=== PATIENT | male | born 1985 | race Caucasian/White ===

== ENCOUNTER 2020-01-23 15:54 | Emergency (ER) | payer SELFPAY ==
[2020-01-23] MEDS ORDERED: KETOROLAC 30 MG/ML INJ ONE (16:23)
[2020-01-23] MEDS ORDERED: NA CHLORIDE 0.9% 1,000 ML ONE (16:23)
[2020-01-23] MEDS ORDERED: ONDANSETRON 4 MG/2 ML VIAL ONE (16:23)
[2020-01-23 16:32] LABS: Absolute Lymphocytes (CBC) 1.9 K/uL (0.7-4.9); Basophils % 0.6 % (0-1.3); Hematocrit 40.2 % (39.6-49.0); Lymphocytes % 33.4 % (15.3-44.8); MPV 8.9 fL (7.6-11.3); RBC Red Blood Cell Count 4.63 M/uL (4.33-5.43)
--- NOTE | 2020-01-23 16:47 | RAD REPORT ---
EXAM DESCRIPTION: CT - Stone Protocol - 01/23/2020 4:30 pm CLINICAL HISTORY: Abdominal pain. Left flank pain COMPARISON: None. TECHNIQUE: Computed axial tomography of the abdomen pelvis was obtained without oral or IV contrast. Lack of IV and oral contrast limits evaluation of solid organs, bowel, and vessels. Coronal reformat giovana images were obtained and reviewed. All CT scans are performed using dose optimization technique as appropriate and may include automated exposure control or mA/KV adjustment according to patient size. FINDINGS: A 2 millimeter calculus right kidney no hydronephrosis. 2 millimeter calculus left kidney no hydronephrosis. A ureteral calculus is not seen. A 1 millimeter calculus is present within the pos terior right bladder. The liver, spleen, pancreas and adrenals appear grossly normal There is no evidence of diverticulitis. Small umbilical hernia IMPRESSION: Small nonobstructing bilateral renal calculi 2 millimeter calculus within the posterior right bladder probably has recently passed from the right ureter
[2020-01-23 16:55] LABS: ALT/SGPT 80 U/L (12-78); Albumin 3.9 g/dL (3.4-5.0); Alkaline Phosphatase 171 U/L (45-117); BUN Blood Urea Nitrogen 10 mg/dL (7-18); Bicarbonate 28 mmol/L (21-32); Bilirubin Direct < 0.1 mg/dL (0-0.2); Bilirubin Total 0.3 mg/dL (0.2-1.0); Glucose Level 90 mg/dL (74-106); Lipase 61 U/L (73-393); Protein, Total 8.3 g/dL (6.4-8.2); Sodium Level 145 mmol/L (136-145)
[2020-01-23 16:58] LABS: Urine Blood 2+ (NEG); Urine Glucose NEGATIVE (NEG); Urine Protein NEGATIVE (NEG); Urine Specific Gravity 1.025 (1.005-1.030); Urine pH 6.5 (5.0-7.0)
[2020-01-23 17:27] LABS: AST/SGOT 38 U/L (15-37); Potassium 3.8 mmol/L (3.5-5.1)
--- NOTE | 2020-01-23 17:32 | ER ---
Nurse's Notes 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 Started after ll1 urinating today. Coronavirus screen: Client denies travel out of the [place] in the last 14 days. At this time, the client does not indicate any symptoms associated with coronavirus-19. Ebola Screen: Patient denies travel to an Ebola-affected area in the 21 days before illness onset. Initial Sepsis Screen: Does the patient meet any 2 criteria? No. Patient's initial sepsis screen is negative. Risk Assessment: Do you want to hurt yourself or someone else? Patient reports no desire to harm self or others. Onset of symptoms was January 23, 2020. 16:01 Method Of Arrival: Ambulatory ll1 16:01 Acuity: YSABEL 3 ll1 Historical: - Allergies: 16:02 No Known Allergies; ll1 - PSHx: 16:02 femur fx; ll1 - Social history:: Smoking status: Patient denies any tobacco usage or history of. Patient/guardian denies using alcohol, street drugs. Screenin:10 Abuse screen: Denies threats or abuse. Denies injuries from another. Nutritional jr10 screening: No deficits noted. Tuberculosis screening: No symptoms or risk factors identified. Fall Risk IV access (20 points). Assessment: 16:05 General: Appears uncomfortable, Behavior is appropriate for age. Pain: Complains of jr10 pain in left flank Pain radiates to left upper quadrant and left lower quadrant Pain currently is 10 out of 10 on a pain scale. Pain began 30 min ago. Neuro: No deficits noted. Cardiovascular: No deficits noted. Respiratory: Airway is patent Respiratory effort is even, unlabored, Respiratory pattern is regular, symmetrical, Breath sounds are clear bilaterally. GI: Abdomen is non-distended, Bowel sounds present X 4 quads. Patient currently denies nausea, vomiting. : Reports urgency. EENT: No deficits noted. No signs and/or symptoms were reported regarding the EENT system. Derm: No deficits noted. No signs and/or symptoms reported regarding the dermatologic system. Musculoskeletal: No deficits noted. No signs and/or symptoms reported regarding the musculoskeletal system. Vital Signs: 16:01 BP 157 / 110; Pulse 70; Resp 20; Temp 98.0; Pulse Ox 100% ; Pain 10/10; ll1 17:21 BP 124 / 79; Pulse 70; Resp 18; Pulse Ox 100% ; jr10 ED Course: 15:55 Patient arrived in ED. ag5 16:01 Triage completed. ll1 16:02 Arm band placed on. ll1 16:03 Chelly Camara, JOSÉ MIGUEL is Primary Nurse. jr10 16:05 Vinh Rascon PA is PHCP. cp 16:05 Vinh Tariq MD is Attending Physician. cp 16:10 No provider procedures requiring assistance completed. Inserted saline lock: 20 gauge jr10 in right forearm, using aseptic technique. IV is patent, is intact, with good blood return, Flushed. 16:11 Patient has correct armband on for positive identification. Bed in low position. Call jr10 light in reach. Side rails up X2. Pulse ox on. NIBP on. 16:30 CT Stone Protocol In Process Unspecified. EDMS 17:42 IV discontinued, intact, bleeding controlled, No redness/swelling at site. Pressure jr10 dressing applied. Administered Medications: 16:20 Drug: NS 0.9% 1000 ml Route: IV; Rate: 1000 ml/hr; Site: right forearm; jr10 16:22 Drug: TORadol - Ketorolac 15 mg Route: IVP; Site: right forearm; jr10 16:37 Follow up: Response: No adverse reaction; Pain is decreased jr10 16:22 Drug: Zofran (Ondansetron) 4 mg Route: IVP; Site: right forearm; jr10 16:34 Follow up: Response: No adverse reaction jr10 Outcome: 17:31 Discharge ordered by . cp 17:42 Discharged to home ambulatory. jr10 17:42 Condition: good 17:42 Condition: improved 17:42 Discharge instructions given to patient, Instructed on discharge instructions, follow up and referral plans. Demonstrated understanding of instructions, follow-up care, medications, Prescriptions given X 2. 17:42 Patient left the ED. jr10 Signatures: Dispatcher [employer] EDMS Vinh Rascon PA PA cp Gaskin, Ajare ag5 Rafi Carias RN RN ll1 Chelly Camara RN RN jr10 Corrections: (The following items were deleted from the chart) 17:42 17:21 Pulse 70bpm; Resp 18bpm; Pulse Ox 100%; jr10 jr10
--- NOTE | 2020-01-23 17:32 | EDPHYS ---
Physician Documentation [facility] Name: Jv Wells Age: 34 yrs Sex: Male : 1985 Arrival Date: 01/23/2020 Time: 15:55 Bed 13 Private MD: ED Physician Vinh Tariq HPI: 01/22 16:15 This 34 yrs old Male presents to ER via Ambulatory with complaints of Side Pain. cp 16:15 The patient complains of pain in the eft flank. cp 16:15 The pain radiates to the left mid back. Onset: The symptoms/episode began/occurred cp suddenly, just prior to arrival. Associated signs and symptoms: Pertinent positives: nausea, Pertinent negatives: diarrhea, fever, pain radiating to the lower extremities, vomiting. The patient has not experienced similar symptoms in the past. Historical: - Allergies: 16:02 No Known Allergies; ll1 - PSHx: 16:02 femur fx; ll1 - Social history:: Smoking status: Patient denies any tobacco usage or history of. Patient/guardian denies using alcohol, street drugs. ROS: 16:25 Eyes: Negative for injury, pain, redness, and discharge. cp 16:25 Constitutional: Negative for body aches, chills, fever, poor PO intake. 16:25 ENT: Negative for ear pain, sore throat. 16:25 Cardiovascular: Negative for chest pain, edema, palpitations. 16:25 Respiratory: Negative for cough, shortness of breath, wheezing. 16:25 Abdomen/GI: Positive for nausea, Negative for vomiting, diarrhea, constipation. 16:25 Back: Positive for flank pain, on the left. 16:25 : Negative for urinary symptoms, testicular pain 16:25 Skin: Negative for rash. 16:25 Neuro: Negative for altered mental status, headache, weakness. 16:25 All other systems are negative. Exam: 16:29 Head/Face: Normocephalic, atraumatic. cp 16:29 Constitutional: The patient appears in no acute distress, alert, awake, non-toxic, well developed, well nourished, uncomfortable. 16:29 Eyes: Periorbital structures: appear normal, Conjunctiva: normal, no exudate, no injection, Lids and lashes: appear normal, bilaterally. 16:29 ENT: External ear(s): are unremarkable, Nose: is normal, Posterior pharynx: Airway: no evidence of obstruction, patent. 16:29 Chest/axilla: Inspection: normal. 16:29 Cardiovascular: Rate: normal, Rhythm: regular. 16:29 Respiratory: the patient does not display signs of respiratory distress, Respirations: normal, no use of accessory muscles, no retractions, labored breathing, is not present. 16:29 Abdomen/GI: Inspection: abdomen appears normal, Palpation: soft, in all quadrants, moderate abdominal tenderness, in the anterior aspect of left lateral abdomen and posterior aspect of left lateral abdomen. 16:29 Back: pain, that is moderate, of the left mid back, ROM is normal. 16:29 Neuro: Orientation: to person, place \T\ time. Mentation: is normal. Vital Signs: 16:01 BP 157 / 110; Pulse 70; Resp 20; Temp 98.0; Pulse Ox 100% ; Pain 10/10; ll1 17:21 BP 124 / 79; Pulse 70; Resp 18; Pulse Ox 100% ; jr10 MDM: 16:09 Patient medically screened. cp 17:09 ED course: VS noted. Pain markedly improved. Discussed results of CT showing calculi in cp bilateral kidney and bladder, no ureteral calculi noted. 17:30 Data reviewed: vital signs, nurses notes, lab test result(s), radiologic studies, CT cp scan, and as a result, I will discharge patient. 17:30 Counseling: I had a detailed discussion with the patient and/or guardian regarding: the cp historical points, exam findings, and any diagnostic results supporting the discharge/admit diagnosis, lab results, radiology results, to return to the emergency department if symptoms worsen or persist or if there are any questions or concerns that arise at home. Response to treatment: the patient's symptoms have markedly improved after treatment, and as a result, I will discharge patient. 01/22 16:10 Order name: Basic Metabolic Panel; Complete Time: 17:28 cp 01/22 17:28 Interpretation: Normal except: CL 109. cp 01/22 16:10 Order name: CBC with Diff; Complete Time: 16:51 cp 01/22 16:51 Interpretation: Normal except: HGB 13.5. cp 01/22 16:10 Order name: Hepatic Function; Complete Time: 17:28 cp 01/22 17:28 Interpretation: Normal except: AST 38; ALT 80; ALK 171; TP 8.3; GLOB 4.4; A/G 0.9. cp 01/22 16:10 Order name: Lipase; Complete Time: 17:28 cp 01/22 16:23 Order name: Urine Dipstick--Ancillary (enter results); Complete Time: 17:09 bd 01/22 17:09 Interpretation: Normal except: UBLD 2+. cp 01/22 16:52 Order name: Urine Microscopic Only cp 01/22 16:10 Order name: IV Saline Lock; Complete Time: 16:21 cp 01/22 16:10 Order name: Labs collected and sent; Complete Time: 16:21 cp 01/22 16:19 Order name: CT Stone Protocol; Complete Time: 16:51 cp 01/22 16:55 Interpretation: Report reviewed. cp Administered Medications: 16:20 Drug: NS 0.9% 1000 ml Route: IV; Rate: 1000 ml/hr; Site: right forearm; 10 16:22 Drug: TORadol - Ketorolac 15 mg Route: IVP; Site: right forearm; jr10 16:37 Follow up: Response: No adverse reaction; Pain is decreased jr10 16:22 Drug: Zofran (Ondansetron) 4 mg Route: IVP; Site: right forearm; jr10 16:34 Follow up: Response: No adverse reaction [facility] Disposition: 01/23/20 17:31 Discharged to Home. Impression: Calculus of kidney - bilateral, Calculus of lower urinary tract - bladder. - Condition is Stable. - Discharge Instructions: Kidney Stones. - Prescriptions for ketorolac 10 mg Oral tablet - take 1 tablet by ORAL route every 6 hours As needed not to exceed 40 mg in 24hrs; 15 tablet. Zofran 4 mg Oral Tablet - take 1 tablet by ORAL route every 12 hours As needed; 20 tablet. - Medication Reconciliation Form, Thank You Letter, Antibiotic Education, Prescription Opioid Use form. - Follow up: Private Physician; When: 1 - 2 days; Reason: Recheck today's complaints. - Problem is new. - Symptoms have improved. Addendum: 01/25/2020 09:02 Co-signature as Attending Physician, Vinh Tariq MD I agree with the assessment and c valdez plan of care. Signatures: Dispatcher [employer] EDMS Vinh Tariq MD MD cha Page, Corey, PA PA cp Rafi Carias, RN RN ll1 Chelly Camara RN RN jr10 Corrections: (The following items were deleted from the chart) 01/22 17:42 17:31 01/23/2020 17:31 Discharged to Home. Impression: Calculus of kidney - bilateral; jr10 Calculus of lower urinary tract - bladder. Condition is Stable. Forms are Medication Reconciliation Form, Thank You Letter, Antibiotic Education, Prescription Opioid Use. Follow up: Private Physician; When: 1 - 2 days; Reason: Recheck today's complaints. Problem is new. Symptoms have improved. cp
[2020-01-23 17:38] LABS: Urine Bacteria <20 /HPF (NONE SEEN); Urine RBC 20-50 /HPF (NONE SEEN)
[2020-01-23 17:39] LABS: Urine Amorphous Sediment 1+ /HPF (NONE SEEN); Urine Culture Reflex Order NOT NEEDED; Urine Mucus 3+ /HPF (NONE SEEN)
== END 2020-01-23 17:42 | disposition home or self-care (01) ==
LOC: ER 15:54
DX: N20.2 Calculus of kidney with calculus of ureter (principal)
CPT/HCPCS: 36415; 74176; 76377; 80048; 80076; 81003; 81015; 83690; 85025; 87086; 87088; 96374; 96375; 99284; J2405; J7030